=== PATIENT | male | born 1940 | race Caucasian/White ===

== ENCOUNTER 2017-05-10 16:11 | Emergency (ER) | payer MEDICARE, OTHER ==
[2017-05-10] MEDS: DIPHTH/TET/ACEL PERTUSS (ADULT) 0.5 ML VIAL IM* (17:39)
== END 2017-05-10 18:41 | disposition home or self-care (01) ==
LOC: E/R 16:11
DX: S02.2XXA Fracture of nasal bones, initial encounter for closed fracture (principal); S06.0X0A Concussion without loss of consciousness, initial encounter; I10 Essential (primary) hypertension; E11.9 Type 2 diabetes mellitus without complications; W01.198A Fall on same level from slipping, tripping and stumbling with subsequent striking against other object, initial encounter; Y92.9 Unspecified place or not applicable; Z87.891 Personal history of nicotine dependence; Z23 Encounter for immunization
CPT/HCPCS: 70450; 70486; 72125; 90471; 90715; 99285-25